=== PATIENT | male | born 1940 | race Caucasian/White ===

== ENCOUNTER 2018-05-29 15:08 | Emergency (ER) | payer MEDICARE, OTHER ==
--- NOTE | 2018-05-29 15:22 | EDM.PDOC ---
ED HPI GENERAL MEDICAL PROBLEM - General Chief Complaint: Upper Extremity Injury/Pain Stated Complaint: right wrist injury from fall Time Seen by Provider: 05/29/18 15:08 Source of Information: Reports: Patient History Limitations: Reports: No Limitations - History of Present Illness INITIAL COMMENTS - FREE TEXT/NARRATIVE: 77 YO WM presents to ER after fall. Pt reports he was moving boxes and tripped landing on an outstretched arm. Pt complaining of right wrist pain. Pt reports the fall occurred 2 days ago. Pt states he took 2 percocet today and his still has discomfort prompting ER visit. Pt complains of mild right knee pain and a bruise without pain to left side of chest. Pt denies any dizziness, nausea, shortness of breath or syncope. 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) Right Wrist Pain Score (Numeric/FACES): 9 - Related Data Allergies Allergy/AdvReac Type Severity Reaction Status Date / Time acetaminophen [From Percocet] Allergy Rash Verified 05/29/18 15:37 cefazolin [From Ancef] Allergy Rash Verified 05/29/18 15:37 morphine Allergy Vomiting Verified 05/29/18 15:37 oxycodone [From Percocet] Allergy Rash Verified 05/29/18 15:37 Home Meds: Home Meds Apixaban [Eliquis] 5 mg PO BID 05/29/18 [History] Aspirin 81 mg PO DAILY 05/29/18 [History] Carvedilol 20 mg PO BID 05/29/18 [History] Cyclobenzaprine [Flexeril] 10 mg PO TID PRN 05/29/18 [History] Ezetimibe/Simvastatin [Vytorin 10-20 mg Tablet] 1 tab PO DAILY 05/29/18 [History ] Fish Oil/Borage/Flax/Om3,6,9#1 [[place] 3-6-9 1,200 mg Softgel] 800 mg PO BID 11/04 [History] Furosemide [Lasix] 20 mg PO BID 05/29/18 [History] Insulin Glarg,Human.Rec.Analog [Lantus] 75 units SUBCUT BID 05/29/18 [History] Magnesium 200 mg PO DAILY 05/29/18 [History] Multivitamin [Multivitamins] 1 tab PO DAILY 05/29/18 [History] Omeprazole 20 mg PO DAILY 05/29/18 [History] Zolpidem [Ambien] 10 mg PO BEDTIME 05/29/18 [History] hydrALAZINE [Apresoline] 25 mg PO TID 05/29/18 [History] oxyCODONE HCl/Acetaminophen [Percocet 5-325 mg Tablet] 1 - 2 tab PO QID PRN 11/04 [History] Review of Systems - Review of Systems Review Of Systems: See Below Constitutional: Reports: No Symptoms Eyes: Reports: No Symptoms Ears: Reports: No Symptoms Nose: Reports: No Symptoms Mouth/Throat: Reports: No Symptoms Respiratory: Reports: No Symptoms Cardiovascular: Reports: No Symptoms GI/Abdominal: Reports: No Symptoms Genitourinary: Reports: No Symptoms Musculoskeletal: Reports: Other (right wrist pain) Skin: Reports: No Symptoms Neurological: Reports: No Symptoms Psychiatric: Reports: No Symptoms ED EXAM, GENERAL - Physical Exam Exam: See Below Exam Limited By: No Limitations General Appearance: Alert, WD/WN, No Apparent Distress Nose: Normal Inspection, Normal Mucosa, No Blood Throat/Mouth: Normal Inspection, Normal Lips, Normal Teeth, Normal Gums, Normal Oropharynx, Normal Voice, No Airway Compromise Head: Atraumatic, Normocephalic Neck: Normal Inspection, Supple, Non-Tender, Full Range of Motion Respiratory/Chest: No Respiratory Distress, Lungs Clear, Normal Breath Sounds, No Accessory Muscle Use, Chest Non-Tender Cardiovascular: Normal Peripheral Pulses, Regular Rate, Rhythm, No Edema, No Gallop, No JVD, No Murmur, No Rub GI/Abdominal: Normal Bowel Sounds, Soft, Non-Tender, No Organomegaly, No Distention, No Abnormal Bruit, No Mass Back Exam: Normal Inspection, Full Range of Motion, NT Extremities: Other (right wrist pain with swelling ) Neurological: Alert, Oriented, CN II-XII Intact, Normal Cognition, Normal Gait, Normal Reflexes, No Motor/Sensory Deficits Psychiatric: Normal Affect, Normal Mood Skin Exam: Warm, Dry, Intact, Normal Color, No Rash Course - Vital Signs Last Recorded V/S: Last Vital Signs Temp 36.9 C 05/29/18 15:32 Pulse 72 05/29/18 15:32 Resp 22 H 05/29/18 15:32 BP 160/92 H 05/29/18 15:32 Pulse Ox 95 05/29/18 15:32 - Orders/Labs/Meds Orders: Active Orders 24 hr Category Date Time Status Wrist Comp Min 3V Rt [CR] Stat Exams 05/29/18 15:21 Ordered - Radiology Interpretation Free Text/Narrative:: right wrist- NAD Departure - Departure Time of Disposition: 16:05 Disposition: Home, Self-Care 01 Condition: Good Clinical Impression: Right wrist sprain Qualifiers: Encounter type: initial encounter Qualified Code(s): S63.501A - Unspecified sprain of right wrist, initial encounter - Discharge Information Instructions: Wrist Sprain, Adult Referrals: PCP,Not In Area [Primary Care Provider] - Forms: ED Department Discharge Additional Instructions: 1. Velcro wrist splint 2. rest/ice/elevation 3. motrin 600mg PO Q6 PRN pain 4. follow up with PCP for further management and treatment 5. return to ER for worsening symptoms - My Orders Last 24 Hours: My Active Orders 05/29/18 15:21 Wrist Comp Min 3V Rt [CR] Stat - Assessment/Plan Last 24 Hours: My Active Orders 05/29/18 15:21 Wrist Comp Min 3V Rt [CR] Stat Assessment:: 1. right wrist sprain 2. right knee contusion Plan: 1. Velcro wrist splint 2. rest/ice/elevation 3. motrin 600mg PO Q6 PRN pain 4. follow up with PCP for further management and treatment 5. return to ER for worsening symptoms
== END 2018-05-29 16:15 | disposition home or self-care (01) ==
LOC: KA.ED 15:08
DX: S63.501A Unspecified sprain of right wrist, initial encounter (principal); S80.01XA Contusion of right knee, initial encounter; Z88.6 Allergy status to analgesic agent; Z88.8 Allergy status to other drugs, medicaments and biological substances; Z88.5 Allergy status to narcotic agent; Z79.82 Long term (current) use of aspirin; Z79.899 Other long term (current) drug therapy; Z79.4 Long term (current) use of insulin; W01.0XXA Fall on same level from slipping, tripping and stumbling without subsequent striking against object, initial encounter
CPT/HCPCS: 73110-RT; 99283